=== PATIENT | female | born 1955 | race Caucasian/White ===

== ENCOUNTER 2016-11-12 17:20 | Emergency (ER) | payer BC, OTHER ==
[2016-11-12] MEDS ORDERED: Ibuprofen 800 MG TAB ONE (18:31)
[2016-11-12] MEDS ORDERED: HYDROcodone/Acetaminophen 10/325 mg Tablet ONE (19:04)
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
== END 2016-11-12 19:07 | disposition home or self-care (01) ==
LOC: BURERS 17:20
DX: S16.1XXA Strain of muscle, fascia and tendon at neck level, initial encounter (principal); M54.5 Low back pain; E03.9 Hypothyroidism, unspecified; V73.5XXA Driver of bus injured in collision with car, pick-up truck or van in traffic accident, initial encounter
CPT/HCPCS: 72125; 72131

== ENCOUNTER 2021-04-14 14:22 | Outpatient (CLI) | payer OTHER | END 2021-04-14 14:23 | disposition home or self-care (01) | LOC: BURRAD 14:22 | PROVIDERS: ATTEND Family Medicine | DX: M76.61 Achilles tendinitis, right leg (principal); M77.31 Calcaneal spur, right foot; M79.89 Other specified soft tissue disorders; M77.8 Other enthesopathies, not elsewhere classified ==